=== PATIENT | male | born 1980 | race African-American/Black ===

== ENCOUNTER 2018-07-30 15:37 | Emergency (ER) | payer SELFPAY ==
[~2018-07-30] VITALS: Ht 180.3 cm; Wt 88.5 kg
[2018-07-30 15:55] VITALS: BP 139/83
--- NOTE | 2018-07-30 16:59 | PHYS DOC ---
Past Medical History Past Medical History: No Pertinent History Past Surgical History: No Surgical History Additional Information: 04/15 ppd cigflaco Alcohol Use: None Drug Use: None Adult General Chief Complaint Chief Complaint: NEEDLE STICK [facility] HPI Patient is a 37 year old male who presents with complaining of needle stick to left ring finger. Patient states he was cleaning his cousin's friend stop and was port in ulnar side of left ring finger with small amount of bleeding. Patient states he knows the person that needed his prolonged and brought the insulin syringe that caused the needle stick. Patient is up-to-date with tetanus immunization and states he washed his finger with soap and water extensively. Review of Systems Review of Systems Constitutional: Denies fever or chills [] Eyes: Denies change in visual acuity, redness, or eye pain [] HENT: Denies nasal congestion or sore throat [] Respiratory: Denies cough or shortness of breath [] Cardiovascular: No additional information not addressed in HPI [] GI: Denies abdominal pain, nausea, vomiting, bloody stools or diarrhea [] : Denies dysuria or hematuria [] Musculoskeletal: Denies back pain or joint pain [] Integument: Denies rash or skin lesions [] Neurologic: Denies headache, focal weakness or sensory changes [] Endocrine: Denies polyuria or polydipsia [] All other systems were reviewed and found to be within normal limits, except as documented in this note. Allergies Allergies Allergies Coded Allergies Type Severity Reaction Last Updated Verified No Known Drug Allergies 07/30/18 No Physical Exam Physical Exam Constitutional: Well developed, well nourished, mild distress, non-toxic appearance. [] HENT: Normocephalic, atraumatic Eyes: PERRLA, EOMI, conjunctiva normal, no discharge. [] Neck: Normal range of motion, no tenderness, supple, no stridor. [] Cardiovascular:Heart rate regular rhythm, no murmur [] Lungs & Thorax: Bilateral breath sounds clear to auscultation [] Skin: Warm, dry, no erythema, no rash. [] Extremities: No sign of injury to left ring finger, no tenderness, no cyanosis, no clubbing, ROM intact, no edema. [] Neurologic: Alert and oriented X 3, normal motor function, normal sensory function, no focal deficits noted. [] Psychologic: Affect normal, judgement normal, mood normal. [] Current Patient Data Vital Signs Vital Signs Date Time Temp Pulse Resp B/P (MAP) Pulse Ox O2 Delivery O2 Flow Rate FiO2 07/30/18 15:55 97.8 89 18 139/83 (101) 98 Room Air 97.8 EKG EKG [] Radiology/Procedures Radiology/Procedures [] Course & Med Decision Making Course & Med Decision Making Evaluation of patient in ER showed 37-year-old male patient with complaining of metastatic to left ring finger. Needle stick protocol labs was drawn and patient was advised to follow with his primary care physician or medical record for results of tests. Dragon Disclaimer Dragon Disclaimer This electronic medical record was generated, in whole or in part, using a voice recognition dictation system. Departure Departure Impression: Primary Impression: Needle stick injury of finger of left hand Disposition: HOME, SELF-CARE (at 1659) Condition: STABLE Referrals: NO PCP (PCP) Patient Instructions: Needle Stick Injury Additional Instructions: Follow-up with your primary care physician in 3-5 days Return to ER if not getting better Problem Qualifiers Primary Impression: Needle stick injury of finger of left hand Encounter type: initial encounter Qualified Codes: S61.239A - Puncture wound without foreign body of unspecified finger without damage to nail, initial encounter; W27.3XXA - Contact with needle (sewing), initial encounter ANTHONY MON MD Jul 30, 2018 16:59
== END 2018-07-30 17:06 | disposition home or self-care (01) ==
LOC: ER 15:37
DX: S61.235A Puncture wound without foreign body of left ring finger without damage to nail, initial encounter (principal); F17.210 Nicotine dependence, cigarettes, uncomplicated; W27.3XXA Contact with needle (sewing), initial encounter; Y93.89 Activity, other specified; Y92.89 Other specified places as the place of occurrence of the external cause; Y99.8 Other external cause status
CPT/HCPCS: 36415; 86703; 86705; 86709; 86803; 87340; 99284

== ENCOUNTER 2019-01-08 16:53 | Emergency (ER) | payer SELFPAY ==
[~2019-01-08] VITALS: Ht 177.8 cm; Wt 89.4 kg
[2019-01-08] MEDS ORDERED: IV NORMAL SALINE 1000ML BAG 1,000 ML IV SCH (19:13)
[2019-01-08] MEDS ORDERED: FAMOTIDINE 20 MG/2 ML VIAL IVP ONE (19:15)
[2019-01-08] MEDS ORDERED: ONDANSETRON PF 4 MG/2 ML VIAL. IV ONE (19:15)
[2019-01-08] MEDS ORDERED: fentaNYL PF VIAL 100 MCG/2 ML VIAL IV ONE (19:15)
--- NOTE | 2019-01-08 19:32 | PHYS DOC ---
Past Medical History Past Medical History: No Pertinent History Past Surgical History: No Surgical History Alcohol Use: None Drug Use: None Adult General Chief Complaint Chief Complaint: NAUSEA/VOMITING/DIARRHA HPI HPI Patient is a 38 year old Male who presents with abdominal pain for the last 2 weeks that is some mid abdomen in the right upper quadrant states is sharp and cramping. Patient states this pain is a 7 out of 10. Patient states last 5 days of anal eating or Rene drink anything because it comes back up. Patient states he was also having some diarrhea at first but he has not had diarrhea for the last 4 days. Patient states he went to [facility] and they did not scan him and they gave him Zofran, Flagyl and ciprofloxacin and stated that they were given a just treat him as though he had a infection in his colon. Patient is not paperwork from . Review of Systems Review of Systems GI: abdominal pain, nausea, vomiting, denies bloody stools. + diarrhea [] : Denies dysuria or hematuria [] Musculoskeletal:Generalized weakness. Denies back pain or joint pain [] Integument: Denies rash or skin lesions [] All other systems were reviewed and found to be within normal limits, except as documented in this note. Current Medications Current Medications Current Medications Medications (Trade) Dose Ordered Sig/Rey Start Time Stop Time Status Last Admin Dose Admin Famotidine (Pepcid Vial) 20 mg 1X ONCE 01/08/19 19:15 01/08/19 19:16 DC 01/08/19 19:33 20 MG Fentanyl Citrate (Fentanyl 2ml Vial) 50 mcg 1X ONCE 01/08/19 19:15 01/08/19 19:16 DC 01/08/19 19:34 50 MCG Info (CONTRAST GIVEN -- Rx MONITORING) 1 each PRN DAILY PRN 01/08/19 23:30 01/10/19 23:29 Iohexol (Omnipaque 300 Mg/ml) 75 ml 1X ONCE 01/08/19 23:15 01/08/19 23:25 DC 01/08/19 23:22 75 ML Ondansetron HCl (Zofran) 4 mg 1X ONCE 01/08/19 19:15 01/08/19 19:16 DC 01/08/19 19:33 4 MG Sodium Chloride 1,000 ml @ 1,000 mls/hr 1X ONCE 01/08/19 20:45 01/08/19 21:44 DC 01/08/19 20:40 1,000 MLS/HR Allergies Allergies Allergies Coded Allergies Type Severity Reaction Last Updated Verified No Known Drug Allergies 07/30/18 No Physical Exam Physical Exam Constitutional: Well developed, well nourished, no acute distress, non-toxic appearance. [] Cardiovascular:Heart rate regular rhythm, no murmur [] Lungs & Thorax: Bilateral breath sounds clear to auscultation [] Abdomen: Bowel sounds normal, soft, RUQ and Epigastric tenderness, no masses, no pulsatile masses. [] Skin: Warm, dry, no erythema, no rash. [] Back: No tenderness, no CVA tenderness. [] Neurologic: Alert and oriented X 3, normal motor function, normal sensory function, no focal deficits noted. [] Psychologic: Affect normal, judgement normal, mood normal. [] Current Patient Data Vital Signs Vital Signs Date Time Temp Pulse Resp B/P (MAP) Pulse Ox O2 Delivery O2 Flow Rate FiO2 01/08/19 22:41 84 16 129/93 (105) 99 Room Air 01/08/19 18:35 97.8 97.8 Lab Values Laboratory Tests Test 01/08/19 22:00 01/08/19 22:30 Urine Collection Type Unknown Urine Color Yellow Urine Clarity Clear Urine pH 5.5 Urine Specific Terrell 1.015 Urine Protein Negative mg/dL (NEG-TRACE) Urine Glucose (UA) Negative mg/dL (NEG) Urine Ketones (Stick) Trace mg/dL (NEG) Urine Blood Negative (NEG) Urine Nitrite Negative (NEG) Urine Bilirubin Negative (NEG) Urine Urobilinogen Dipstick 1.0 mg/dL (0.2 mg/dL) Urine Leukocyte Esterase Negative (NEG) Urine RBC 0 /HPF (0-2) Urine WBC Occ /HPF (0-4) Urine Squamous Epithelial Cells Occ /LPF Urine Bacteria 0 /HPF (0-FEW) Urine Mucus Mod /LPF Urine Opiates Screen Neg (NEG) Urine Methadone Screen Neg (NEG) Urine Barbiturates Neg (NEG) Urine Phencyclidine Screen Pos (NEG) Urine Amphetamine/Methamphetamine Pos (NEG) Urine Benzodiazepines Screen Neg (NEG) Urine Cocaine Screen Neg (NEG) Urine Cannabinoids Screen Pos (NEG) Urine Ethyl Alcohol Neg (NEG) White Blood Count 6.1 x10^3/uL (4.0-11.0) Red Blood Count 4.82 x10^6/uL (4.30-5.70) Hemoglobin 15.8 g/dL (13.0-17.5) Hematocrit 45.5 % (39.0-53.0) Mean Corpuscular Volume 94 fL (79-100) Mean Corpuscular Hemoglobin 33 pg (25-35) Mean Corpuscular Hemoglobin Concent 35 g/dL (31-37) Red Cell Distribution Width 12.1 % (11.5-14.5) Platelet Count 167 x10^3/uL (140-400) Neutrophils (%) (Auto) 51 % (31-73) Lymphocytes (%) (Auto) 41 % (24-48) Monocytes (%) (Auto) 8 % (0-9) Eosinophils (%) (Auto) 1 % (0-3) Basophils (%) (Auto) 1 % (0-3) Neutrophils # (Auto) 3.1 x10^3/uL (1.8-7.7) Lymphocytes # (Auto) 2.5 x10^3/uL (1.0-4.8) Monocytes # (Auto) 0.5 x10^3/uL (0.0-1.1) Eosinophils # (Auto) 0.1 x10^3/uL (0.0-0.7) Basophils # (Auto) 0.0 x10^3/uL (0.0-0.2) Sodium Level 137 mmol/L (136-145) Potassium Level 5.0 mmol/L (3.5-5.1) Chloride Level 102 mmol/L (98-107) Carbon Dioxide Level 28 mmol/L (21-32) Anion Gap 7 (6-14) Blood Urea Nitrogen 16 mg/dL (8-26) Creatinine 1.2 mg/dL (0.7-1.3) Estimated GFR (Cockcroft-Gault) 82.9 BUN/Creatinine Ratio 13 (6-20) Glucose Level 79 mg/dL (70-99) Calcium Level 9.0 mg/dL (8.5-10.1) Total Bilirubin 2.2 mg/dL (0.2-1.0) H Aspartate Amino Transferase (AST) 18 U/L (15-37) Alanine Aminotransferase (ALT) 18 U/L (16-63) Alkaline Phosphatase 85 U/L (46-116) Total Protein 6.6 g/dL (6.4-8.2) Albumin 3.7 g/dL (3.4-5.0) Albumin/Globulin Ratio 1.3 (1.0-1.7) Lipase 160 U/L (73-393) Laboratory Tests 01/08/19 22:30 Laboratory Tests 01/08/19 22:30 EKG EKG [] Radiology/Procedures Radiology/Procedures [] Impressions: [address] [address] IMAGING REPORT Signed PATIENT: FRANCESCO QUINTANILLA ACCOUNT: [id number] : 1980 LOCATION: ER AGE: 38 SEX: M EXAM STATUS: REG ER ORD. PHYSICIAN: MARIANN MUÑOZ APRN REASON: upper abdominal pain PROCEDURE: PORTABLE CHEST 1V PORTABLE CHEST 1V History: Upper abdominal pain Comparison: None. Findings: 2 AP views of the chest are submitted. There is no infiltrate, pleural fluid, pneumothorax. Heart size is within normal limits. Impression: 1. No acute radiographic abnormality is identified. Electronically signed by: Jonathan Camacho MD (01/08/2019 7:52 PM) [facility] DICTATED and SIGNED BY: JONATHAN CAMACHO MD DATE: 01/08/191951 [address] [address] IMAGING REPORT Signed PATIENT: FRANCESCO QUINTANILLA ACCOUNT: [id number] : 1980 LOCATION: ER AGE: 38 SEX: M EXAM STATUS: REG ER ORD. PHYSICIAN: MARIANN MUÑOZ APRN REASON: abd pain, nausea, vomiting PROCEDURE: CT ABD PELV W/ IV CONTRST ONLY EXAM: CT ABDOMEN/PELVIS WITH CONTRAST. HISTORY: Abdominal pain, nausea/vomiting. TECHNIQUE: Computed tomography of the abdomen and pelvis was performed after the intravenous administration of iodinated contrast. COMPARISON: None. FINDINGS: Lung windows through the visualized portions of the bases reveal mild atelectasis. Bone windows reveal no suspicious lesions. The liver, gallbladder, pancreas, and adrenal glands are unremarkable. A 1.4 cm hypoattenuating focus at the lower pole of the spleen is most likely a benign lesion such as a cyst or hemangioma in the absence of known malignancy. There are no pathologically enlarged lymph nodes. The right kidney is severely atrophic. It contains a 2 mm calyceal calculus. The left kidney is unremarkable. No ureteral calculi are identified. The appendix is not inflamed. There is no small bowel obstruction. IMPRESSION: 1. Severe right renal atrophy. 2 mm right renal calculus. Unremarkable left kidney. 2. No cause for acute pain is identified. 3. A 14 mm hypoattenuating splenic lesion is indeterminate by imaging but a benign lesion such as a cyst or hemangioma is strongly favored in the absence of known malignancy. *One or more of the following individualized dose reduction techniques were utilized for this examination: 1. Automated exposure control. 2. Adjustment of the mA and/or kV according to patient size. 3. Use of iterative reconstruction technique. Electronically signed by: Sandeep Mackenzie MD (01/08/2019 11:44 PM) [facility] DICTATED and SIGNED BY: MICHELLE MACKENZIE MD DATE: 01/08/19 234 Course & Med Decision Making Course & Med Decision Making Patient is a 38 year old Male who presents with abdominal pain for the last 2 weeks that is some mid abdomen in the right upper quadrant states is sharp and cramping. Patient states this pain is a 7 out of 10. Patient states last 5 days of anal eating or Rene drink anything because it comes back up. Patient states he was also having some diarrhea at first but he has not had diarrhea for the last 4 days. Patient states he went to [facility] and they did not scan him and they gave him Zofran, Flagyl and ciprofloxacin and stated that they were given a just treat him as though he had a infection in his colon. Patient is not paperwork from . Alert and oriented. Skin pink warm and dry. Mucous membranes are moist. Speaks in full clear sentences. Ambulatory with steady gait. Patient states he is feeling increasingly more weak. Patient has tenderness to his mid epigastric abdomen and over to the right upper quadrant. Patient denies any dysuria symptoms, chest pain, shortness of air, fever, dizziness, syncope, numbness or tingling, visual changes, headache. No extremity edema. Patient denies any medical history or surgeries. Patient states he has not been taking any medications. Patient states the Zofran did not work for his nausea and he only took 3 pills of ciprofloxacin but he cannot keep anything down. Lungs clear to auscultation all lobes. Vital signs within normal limits. Afebrile. Patient is positive for PCP, methamphetamines, marijuana. CT ABD PELV: 1. Severe right renal atrophy. 2 mm right renal calculus. Unremarkable left kidney. 2. No cause for acute pain is identified. 3. A 14 mm hypoattenuating splenic lesion is indeterminate by imaging but a benign lesion such as a cyst or hemangioma is strongly favored in the absence of known malignancy. Dragon Disclaimer Dragon Disclaimer This electronic medical record was generated, in whole or in part, using a voice recognition dictation system. Departure Departure Impression: Primary Impression: Abdominal pain Additional Impressions: Nausea & vomiting Right renal atrophy Disposition: 01 HOME, SELF-CARE Condition: STABLE Referrals: NO PCP (PCP) Patient Instructions: Abdominal Pain (Nonspecific), Nausea and Vomiting Additional Instructions: Take medication as prescribed. Take the Zofran that you have. Do not take the antibiotics. Drink plenty of fluids. Problem Qualifiers Primary Impression: Abdominal pain Abdominal location: generalized Qualified Codes: R10.84 - Generalized abdominal pain Additional Impressions: Nausea & vomiting Vomiting type: unspecified Vomiting Intractability: non-intractable Qualified Codes: R11.2 - Nausea with vomiting, unspecified MARIANN MUÑOZ [employer] Jan 08, 2019 19:32
--- NOTE | 2019-01-08 19:55 | RAD ---
PORTABLE CHEST 1V History: Upper abdominal pain Comparison: None. Findings: 2 AP views of the chest are submitted. There is no infiltrate, pleural fluid, pneumothorax. Heart size is within normal limits. Impression: 1. No acute radiographic abnormality is identified. Electronically signed by: Christiano Friedman MD (01/08/2019 7:52 PM) [facility]
[2019-01-08] MEDS ORDERED: IV NORMAL SALINE 1000ML BAG 1,000 ML IV ONE (20:45)
[2019-01-08 22:12] LABS: BILIRUBIN,URINE NEGATIVE (NEG); CLARITY,URINE CLEAR; COLOR,URINE YELLOW; NITRITE,URINE NEGATIVE (NEG); PH,URINE 5.5; PROTEIN,URINE NEGATIVE (NEG-TRACE)
[2019-01-08 22:17] LABS: BACTERIA,URINE 0 /HPF (0-FEW); SQUAMOUS EPITHELIAL CELL,UR OCC /LPF; WBC,URINE OCC /HPF (0-4)
[2019-01-08 22:18] LABS: BARBITURATES NEG (NEG); BENZODIAZEPINES NEG (NEG); CANNABINOIDS POS (NEG); COCAINE NEG (NEG); METHADONE NEG (NEG); OPIATES NEG (NEG); PHENCYCLIDINE POS (NEG); RBC,URINE 0 /HPF (0-2)
[2019-01-08 22:19] LABS: AMPHETAMINE/METHAMPHETAMINE POS (NEG)
[2019-01-08 22:41] VITALS: BP 129/93
[2019-01-08 22:45] LABS: BASO % 1 % (0-3); EOS # 0.1 x10^3/uL (0.0-0.7); EOS % 1 % (0-3); HEMATOCRIT 45.5 % (39.0-53.0); HEMOGLOBIN 15.8 g/dL (13.0-17.5); LYMPH # 2.5 x10^3/uL (1.0-4.8); LYMPH % 41 % (24-48); MEAN CORPUSCULAR HEMOGLOBIN 33 pg (25-35); MEAN CORPUSCULAR HGB CONC 35 g/dL (31-37); MEAN CORPUSCULAR VOLUME 94 fL (79-100); MONO # 0.5 x10^3/uL (0.0-1.1); MONO % 8 % (0-9); NEUT # 3.1 x10^3/uL (1.8-7.7); NEUT % 51 % (31-73); PLATELET COUNT 167 x10^3/uL (140-400); RED BLOOD COUNT 4.82 x10^6/uL (4.30-5.70); RED CELL DISTRIBUTION WIDTH 12.1 % (11.5-14.5); WHITE BLOOD COUNT 6.1 x10^3/uL (4.0-11.0)
[2019-01-08 22:48] LABS: CREATININE 1.2 mg/dL (0.7-1.3); GFR 82.9
[2019-01-08 22:54] LABS: ALBUMIN 3.7 g/dL (3.4-5.0); ALBUMIN/GLOBULIN RATIO 1.3 (1.0-1.7); TOTAL BILIRUBIN 2.2 mg/dL (0.2-1.0); TOTAL PROTEIN 6.6 g/dL (6.4-8.2)
[2019-01-08] MEDS ORDERED: IOHEXOL 300 MG/ML 100ML VIAL. IV ONE (23:15)
[2019-01-08] MEDS ORDERED: CONTRAST GIVEN. MC PRN (23:30)
--- NOTE | 2019-01-08 23:47 | RAD ---
EXAM: CT ABDOMEN/PELVIS WITH CONTRAST. HISTORY: Abdominal pain, nausea/vomiting. TECHNIQUE: Computed tomography of the abdomen and pelvis was performed after the intravenous administration of iodinated contrast. COMPARISON: None. FINDINGS: Lung windows through the visualized portions of the bases reveal mild atelectasis. Bone windows reveal no suspicious lesions. The liver, gallbladder, pancreas, and adrenal glands are unremarkable. A 1.4 cm hypoattenuating focus at the lower pole of the spleen is most likely a benign lesion such as a cyst or hemangioma in the absence of known malignancy. There are no pathologically enlarged lymph nodes. The right kidney is severely atrophic. It contains a 2 mm calyceal calculus. The left kidney is unremarkable. No ureteral calculi are identified. The appendix is not inflamed. There is no small bowel obstruction. IMPRESSION: 1. Severe right renal atrophy. 2 mm right renal calculus. Unremarkable left kidney. 2. No cause for acute pain is identified. 3. A 14 mm hypoattenuating splenic lesion is indeterminate by imaging but a benign lesion such as a cyst or hemangioma is strongly favored in the absence of known malignancy. *One or more of the following individualized dose reduction techniques were utilized for this examination: 1. Automated exposure control. 2. Adjustment of the mA and/or kV according to patient size. 3. Use of iterative reconstruction technique. Electronically signed by: Sandeep Mackenzie MD (01/08/2019 11:44 PM) [facility]
== END 2019-01-09 00:57 | disposition home or self-care (01) ==
LOC: ER 16:53
DX: N26.1 Atrophy of kidney (terminal) (principal); R10.11 Right upper quadrant pain; R11.2 Nausea with vomiting, unspecified; R10.84 Generalized abdominal pain
CPT/HCPCS: 36415; 71045; 74177; 80053; 80307; 81001; 83690; 85025; 96361; 96374; 96375; 99285; J2405; J3010; J3490; J7030; Q9967